=== PATIENT | female | born 1995 | race Caucasian/White ===

== ENCOUNTER 2016-11-16 16:54 | Observation (INO) | payer SELFPAY ==
[2016-11-16 16:55] VITALS: BMI 28.0
[2016-11-16] MEDS ORDERED: Sodium Chloride 0.9% 1,000 ML IV ONE (18:06)
[2016-11-16 18:14] LABS: BASO # 0.1 K/uL (0.0-0.2); BASO % 0.6 % (0.0-2.0); EOS # 0.1 K/uL (0.0-0.7); EOS % 1.2 % (0.0-4.0); HEMATOCRIT 37.4 % (34.0-47.0); LYMPH % 27.6 % (20.0-40.0); MEAN CELL VOLUME 83.8 fL (81.0-99.0); MEAN CORPUSCULAR HEMOGLOBIN 27.9 pg (27.0-31.0); MEAN CORPUSCULAR HGB CONC 33.3 g/dL (33.0-37.0); MEAN PLATELET VOLUME 8.5 fL (7.2-11.7); MONO # 0.7 K/uL (0.0-0.8); MONO % 6.5 % (0.0-10.0); NRBC % 0.1 % (0.0-2.0); RED CELL DISTRIBUTION WIDTH 13.3 % (11.5-14.5); WHITE BLOOD COUNT 10.8 K/uL (4.8-10.8)
[2016-11-16] MEDS ORDERED: Sodium Chloride 0.9% 1,000 ML ONE (18:16)
[2016-11-16 18:26] LABS: CHLORIDE 104 mmol/L (98-107); POTASSIUM 3.7 mmol/L (3.6-5.2); SODIUM 140 mmol/L (132-148)
[2016-11-16 18:28] LABS: ALB/GLOB RATIO 1.4 (1.0-2.1); ALKALINE PHOSPHATASE 64 U/L (38-126); AST/SGOT 30 U/L (14-36); BILIRUBIN,TOTAL 0.6 mg/dL (0.2-1.3); CARBON DIOXIDE 23 mmol/L (22-30); GFR AFRICAN-AMERICAN > 60; TOTAL PROTEIN 8.1 g/dL (6.3-8.3)
[2016-11-16 18:29] LABS: ALT/SGPT 34 U/L (9-52); BLOOD UREA NITROGEN 11 mg/dL (7-17); CALCIUM 9.2 mg/dl (8.6-10.4); GLUCOSE,RANDOM 77 mg/dL (65-105)
[2016-11-16 19:50] LABS: RBC URINE 470 /hpf (0-3); URINE BACTERIA OCC (<OCC); URINE BILIRUBIN NEGATIVE (NEGATIVE); URINE BLOOD 3+ (NEGATIVE); URINE COLOR Yellow (YELLOW); URINE GLUCOSE (UA) NORMAL (Normal); URINE KETONE 1+ mg/dL (NEGATIVE); URINE LEUKOCYTE ESTERASE 1+ Leu/uL (Negative); URINE PROTEIN 2+ mg/dL (NEGATIVE); URINE UROBILINOGEN NORMAL mg/dL (0.2-1.0); WBC URINE 9 /hpf (0-5)
[2016-11-16] MEDS ORDERED: Morphine 4 MG/ML VIAL ONE (20:03)
[2016-11-16] MEDS ORDERED: Iohexol 240 (50 ml) PO STA (23:04)
[2016-11-16] MEDS ORDERED: Iohexol 240 (50 ml) ONE (23:27)
[2016-11-17] MEDS ORDERED: Iodixanol 320 MG/ML 100 ML BOTTLE IV ONE (00:33)
--- NOTE | 2016-11-17 00:47 | C.PDOC ---
Time Seen by Provider: 11/16/16 17:56 Chief Complaint (Nursing): Abdominal Pain History Per: Patient, Family Onset/Duration Of Symptoms: Days (5) Current Symptoms Are (Timing): Still Present Severity: Moderate Location Of Pain/Discomfort: RLQ Quality Of Discomfort: "Pain" Associated Symptoms: Nausea, Vomiting Alleviating Factors: None Last Bowel Movement: Today Additional History Per: Prior Records Last Menstral Period: Now Past Medical History Reviewed: Historical Data, Nursing Documentation, Vital Signs Vital Signs: Last Vital Signs Temp 97.7 F 11/17/16 00:27 Pulse 59 L 11/17/16 00:27 Resp 16 11/17/16 00:27 BP 117/70 11/17/16 00:27 Pulse Ox 98 11/17/16 00:49 - Medical History PMH: Hyperthyroidism, Migraine Surgical History: Tonsillectomy Family History: States: Unknown Family Hx - Social History Hx Tobacco Use: No Hx Alcohol Use: No Hx Substance Use: No - Immunization History Hx Tetanus Toxoid Vaccination: No Hx Influenza Vaccination: Yes (10/2016) Hx Pneumococcal Vaccination: No Review Of Systems Except As Marked, All Systems Reviewed And Found Negative. Constitutional: Negative for: Fever, Weakness Cardiovascular: Negative for: Chest Pain Respiratory: Negative for: Shortness of Breath Gastrointestinal: Positive for: Nausea, Vomiting, Abdominal Pain Genitourinary: Positive for: Vaginal Bleeding (Pt states she is on her menstrua period now). Negative for: Dysuria Musculoskeletal: Negative for: Neck Pain Skin: Negative for: Rash Neurological: Negative for: Weakness, Numbness Physical Exam - Physical Exam Appears: Non-toxic, No Acute Distress Skin: Normal Color, Warm, Dry, No Rash Head: Atraumatic, Normacephalic Eye(s): bilateral: Normal Inspection, PERRL, EOMI Neck: Normal ROM, Supple Cardiovascular: Rhythm Regular Respiratory: Normal Breath Sounds, No Accessory Muscle Use Gastrointestinal/Abdominal: Soft, Tenderness (RLQ) Back: No CVA Tenderness Extremity: Normal ROM Neurological/Psych: Oriented x3, Normal Motor, Normal Sensation ED Course And Treatment - Laboratory Results Result Diagrams: 11/16/16 18:11 11/16/16 18:11 Lab Interpretation: No Acute Changes Urine POC: Negative O2 Sat by Pulse Oximetry: 98 Pulse Ox Interpretation: Normal - CT Scan/US Pelvic US Other Rad Studies (CT/US): Read By Radiologist, Radiology Report Reviewed CT/US Interpretation: No significant abnormalities of the pelvis. - Physician Consult Information Physician Contacted: Eddy Lowry (Surgery) Outcome Of Conversation: He requested CT abdomen/pelvis with IV & PO contrast if the pelvic US is negative. Progress - Interventions Interventions:: Observation, Intravenous fluid - Medications Administered Oral: Acetaminophen Intravenous: Antiemetic, H-2 nela, NSAID - Data Reviewed Data Reviewed: Lab, Diagnostic imaging, Old records Disposition - Disposition Disposition Time: 01:00 Condition: FAIR - Clinical Impression Clinical Impression: Abdominal pain Physician Patient Turnover Patient Signed Over To: Jarred Hernandez Handoff Comments: to f/up CT scan.
--- NOTE | 2016-11-17 01:56 | CT ---
EXAM: CT Abdomen and Pelvis With Intravenous Contrast EXAM DATE/TIME: 11/16/2016 11:05 PM CLINICAL HISTORY: 21 years old, female; Pain; Abdominal pain; Patient HX: 9; Additional info: Rlq pain TECHNIQUE: Axial computed tomography images of the abdomen and pelvis with intravenous contrast. All CT scans at this facility use one or more dose reduction techniques, viz.: automated exposure control; ma/kV adjustment per patient size (including targeted exams where dose is matched to indication; i.e. head); or iterative reconstruction technique. Coronal and sagittal reformatted images were created and reviewed. CONTRAST: 100 mL of [id number] administered intravenously. COMPARISON: US - PELVIS ULTRASOUND 11/16/2016 8:05:23 PM FINDINGS: Lower thorax: Heart size is normal. There is a small hiatal hernia. There is atelectasis and scarring at the lung bases ABDOMEN: Liver: There is fatty infiltration of the liver. Gallbladder and bile ducts: unremarkable Pancreas: unremarkable Spleen: unremarkable Adrenals: unremarkable Kidneys and ureters: unremarkable Stomach and bowel: unremarkable Appendix: Stomach is almost empty. Rotation is normal. There is no obstruction. There is mild terminal ileal wall thickening.Appendix is unremarkable.Colon is incompletely distended which limits evaluation. PELVIS: Bladder: unremarkable Reproductive: Uterus and left adnexa are unremarkable. There is prominence of the right adnexa. ABDOMEN and PELVIS: Intraperitoneal space: There is no free air or free fluid. Bones/joints: There are no acute osseous abnormalities Soft tissues: unremarkable Vasculature: Vascular structures are unremarkable. Lymph nodes: There is shotty adenopathy. IMPRESSION: No acute solid visceral abnormality; no CT findings of appendicitis; mild terminal ileal wall thickening underdistention versus inflammation; prominence of the right adnexa
[2016-11-17] MEDS ORDERED: Piperacillin/Tazobact 3.375 gm 100 ML IVPB STA (02:43)
[2016-11-17] MEDS ORDERED: Piperacillin/Tazobact 3.375 gm 100 ML IVPB ONE (02:52)
[2016-11-17] MEDS ORDERED: Sodium Chloride 0.9% 1,000 ML IV SCH (04:30)
--- NOTE | 2016-11-17 04:43 | CP.PCM.HP ---
<Rita Burton - Last Filed: 11/17/16 04:40> History of Present Illness - History of Present Illness History of Present Illness: General Surgery Dr. Lowry 21F presents to the ED c/o abd pain x6 days. Pt states pain has not and does not migrate around abd. Pain localized to RLQ w/ radiation into pt's back and R groin. Pt denies having had this pain previously. Pt admits to 1 episode NBNB vomiting yesterday w/ continued nausea, made worse by PO intake. Pt admits to chronic constipation with the most recent episode starting ~20days ago per pt mother @bedside. Pt denies F/C, SOB, CP, reflux, distension, numbness, tingling , weakness. Pt given dose of morphine just prior to evaluation. PMHx: hyperthyroidism meds: reviewed in chart Allergies: ibuprofen PSHx: tonsillectomy SHx: denies tobacco, EtOH, drug use. virgin FHx: noncontributory Present on Admission - Present on Admission Any Indicators Present on Admission: No Review of Systems - Review of Systems All systems: reviewed and no additional remarkable complaints except (see HPI) Past Patient History - Infectious Disease Hx of Infectious Diseases: None - Past Social History Smoking Status: Never Smoked - NEUROLOGICAL Hx Migraine: Yes - ENDOCRINE/METABOLIC Hx Hyperthyroidism: Yes - PSYCHIATRIC Hx Substance Use: No - SURGICAL HISTORY Hx Tonsillectomy: Yes - ANESTHESIA Hx Anesthesia: Yes Hx Anesthesia Reactions: No Hx Malignant Hyperthermia: No Meds Allergies/Adverse Reactions: Allergies Allergy/AdvReac Type Severity Reaction Status Date / Time ibuprofen [From Advil] AdvReac SWELLING Verified 11/16/16 17:17 Physical Exam - Constitutional Appears: Non-toxic, No Acute Distress - Head Exam Head Exam: NORMAL INSPECTION - Eye Exam Eye Exam: Normal appearance - ENT Exam ENT Exam: Mucous Membranes Moist - Respiratory Exam Respiratory Exam: NORMAL BREATHING PATTERN. absent: Accessory Muscle Use, Respiratory Distress - Cardiovascular Exam Cardiovascular Exam: absent: Bradycardia, Tachycardia - GI/Abdominal Exam GI & Abdominal Exam: Soft, Tenderness (TTP RLQ). absent: Distended, Guarding, Rebound Additional comments: negative McBurney's point, Rosving, Psoas, Obturator sign - Extremities Exam Extremities exam: Positive for: normal inspection - Neurological Exam Neurological exam: Alert, Oriented x3 - Psychiatric Exam Psychiatric exam: Normal Affect, Normal Mood - Skin Skin Exam: Dry, Intact, Normal Color, Warm Results - Vital Signs Recent Vital Signs: Last Vital Signs Temp 97.7 F 11/17/16 00:27 Pulse 59 L 11/17/16 00:27 Resp 16 11/17/16 00:27 BP 117/70 11/17/16 00:27 Pulse Ox 98 11/17/16 01:03 - Labs Result Diagrams: 11/16/16 18:11 11/16/16 18:11 Labs: Laboratory Results - last 24 hr 11/16/16 11/16/16 11/16/16 18:11 18:11 19:31 WBC 10.8 RBC 4.47 Hgb 12.5 Hct 37.4 MCV 83.8 MCH 27.9 MCHC 33.3 RDW 13.3 Plt Count 333 MPV 8.5 Neut % (Auto) 64.1 Lymph % (Auto) 27.6 [place] % (Auto) 6.5 Eos % (Auto) 1.2 Baso % (Auto) 0.6 Neut # 6.9 Lymph # 3.0 [place] # 0.7 Eos # 0.1 Baso # 0.1 Sodium 140 Potassium 3.7 Chloride 104 Carbon Dioxide 23 Anion Gap 17 BUN 11 Creatinine 0.6 L Est GFR ( Amer) > 60 Est GFR (Non-Af Amer) > 60 Random Glucose 77 Calcium 9.2 Total Bilirubin 0.6 AST 30 ALT 34 Alkaline Phosphatase 64 Total Protein 8.1 Albumin 4.7 Globulin 3.3 Albumin/Globulin Ratio 1.4 Lipase 118 Urine Color Yellow Urine Clarity Hazy Urine pH 6.0 Ur Specific [place] 1.017 Urine Protein 2+ H Urine Glucose (UA) Normal Urine Ketones 1+ H Urine Blood 3+ H Urine Nitrate Negative Urine Bilirubin Negative Urine Urobilinogen Normal Ur Leukocyte Esterase 1+ H Urine WBC (Auto) 9 H Urine RBC (Auto) 470 H Ur Squamous Epith Cells 10 H Urine Bacteria Occ H Urine HCG, Qual Negative - Imaging and Cardiology US - abdomen Status: Image reviewed by me, Report reviewed by me CT scan - abdomen Status: Image reviewed by me, Report reviewed by me Assessment & Plan - Assessment and Plan (Free Text) Assessment: 21 y/o F w/ abd pain - abd ultrasound WNL - CT A/P w/ PO & IV contrast: R adnexal swelling - NPO, IVF - pain management - anti-emetics - stool softeners - serial abd exams Further recs per Dr. Essence Courtneyanda Flick DO PGY2 <Eddy Lowry - Last Filed: 11/17/16 12:41> Results - Vital Signs Recent Vital Signs: Last Vital Signs Temp 98.0 F 11/17/16 10:00 Pulse 77 11/17/16 10:00 Resp 18 11/17/16 10:00 BP 120/79 11/17/16 10:00 Pulse Ox 98 11/17/16 10:00 - Labs Result Diagrams: 11/17/16 06:26 11/17/16 06:26 Labs: Laboratory Results - last 24 hr 11/16/16 11/16/16 11/16/16 18:11 18:11 19:31 WBC 10.8 RBC 4.47 Hgb 12.5 Hct 37.4 MCV 83.8 MCH 27.9 MCHC 33.3 RDW 13.3 Plt Count 333 MPV 8.5 Neut % (Auto) 64.1 Lymph % (Auto) 27.6 [place] % (Auto) 6.5 Eos % (Auto) 1.2 Baso % (Auto) 0.6 Neut # 6.9 Lymph # 3.0 [place] # 0.7 Eos # 0.1 Baso # 0.1 Sodium 140 Potassium 3.7 Chloride 104 Carbon Dioxide 23 Anion Gap 17 BUN 11 Creatinine 0.6 L Est GFR ( Amer) > 60 Est GFR (Non-Af Amer) > 60 Random Glucose 77 Calcium 9.2 Total Bilirubin 0.6 AST 30 ALT 34 Alkaline Phosphatase 64 Total Protein 8.1 Albumin 4.7 Globulin 3.3 Albumin/Globulin Ratio 1.4 Lipase 118 Urine Color Yellow Urine Clarity Hazy Urine pH 6.0 Ur Specific [place] 1.017 Urine Protein 2+ H Urine Glucose (UA) Normal Urine Ketones 1+ H Urine Blood 3+ H Urine Nitrate Negative Urine Bilirubin Negative Urine Urobilinogen Normal Ur Leukocyte Esterase 1+ H Urine WBC (Auto) 9 H Urine RBC (Auto) 470 H Ur Squamous Epith Cells 10 H Urine Bacteria Occ H Urine HCG, Qual Negative 11/17/16 11/17/16 06:26 06:26 WBC 7.1 RBC 3.74 L Hgb 10.5 L D Hct 31.4 L MCV 84.1 MCH 28.2 MCHC 33.5 RDW 13.3 Plt Count 258 MPV 8.0 Neut % (Auto) 57.3 Lymph % (Auto) 31.7 [place] % (Auto) 7.8 Eos % (Auto) 2.5 Baso % (Auto) 0.7 Neut # 4.1 Lymph # 2.3 [place] # 0.6 Eos # 0.2 Baso # 0.0 Sodium 136 Potassium 3.7 Chloride 104 Carbon Dioxide 22 Anion Gap 13 BUN 7 Creatinine 0.6 L Est GFR ( Amer) > 60 Est GFR (Non-Af Amer) > 60 Random Glucose 81 Calcium 8.2 L Total Bilirubin 0.7 AST 18 ALT 30 Alkaline Phosphatase 46 Total Protein 5.9 L Albumin 3.3 L D Globulin 2.6 Albumin/Globulin Ratio 1.3 Lipase Urine Color Urine Clarity Urine pH Ur Specific [place] Urine Protein Urine Glucose (UA) Urine Ketones Urine Blood Urine Nitrate Urine Bilirubin Urine Urobilinogen Ur Leukocyte Esterase Urine WBC (Auto) Urine RBC (Auto) Ur Squamous Epith Cells Urine Bacteria Urine HCG, Qual Attending/Attestation - Attestation I have personally seen and examined this patient.: Yes I have fully participated in the care of the patient.: Yes I have reviewed all pertinent clinical information: Yes Notes (Text): 11/17/16 12:39 Pt was seen and examined at bedside Pt with RLQ pain for last 6 days. No RLQ tenderness Abdomen is soft, Nontender. Labs and radiology reviewed CT scan reviewed with Radiologist Pt might have early terminal ileitis, No evidence of appendicitis Pt has UTI on UA Pt also has severe constipation Pt can be DC home on Levaquine and flagyl and lactulose f.u as out pt in office after 1 week. Plan d.w pt in detail Risk and benefit explained in detail.
[2016-11-17] MEDS ORDERED: metroNIDAZOLE IV 500 mg/100 ml 500 MG/100 ML BAG IVPB SCH (06:00)
[2016-11-17 06:29] LABS: BASO % 0.7 % (0.0-2.0); EOS # 0.2 K/uL (0.0-0.7); EOS % 2.5 % (0.0-4.0); HEMATOCRIT 31.4 % (34.0-47.0); LYMPH # 2.3 K/uL (1.0-4.3); LYMPH % 31.7 % (20.0-40.0); MEAN CELL VOLUME 84.1 fL (81.0-99.0); MEAN CORPUSCULAR HEMOGLOBIN 28.2 pg (27.0-31.0); MEAN CORPUSCULAR HGB CONC 33.5 g/dL (33.0-37.0); MONO # 0.6 K/uL (0.0-0.8); MONO % 7.8 % (0.0-10.0); RED CELL DISTRIBUTION WIDTH 13.3 % (11.5-14.5); WHITE BLOOD COUNT 7.1 K/uL (4.8-10.8)
[2016-11-17 06:43] LABS: ALB/GLOB RATIO 1.3 (1.0-2.1); ALKALINE PHOSPHATASE 46 U/L (38-126); ALT/SGPT 30 U/L (9-52); AST/SGOT 18 U/L (14-36); BILIRUBIN,TOTAL 0.7 mg/dL (0.2-1.3); BLOOD UREA NITROGEN 7 mg/dL (7-17); CALCIUM 8.2 mg/dl (8.6-10.4); CARBON DIOXIDE 22 mmol/L (22-30); CHLORIDE 104 mmol/L (98-107); GFR AFRICAN-AMERICAN > 60; GLUCOSE,RANDOM 81 mg/dL (65-105); POTASSIUM 3.7 mmol/L (3.6-5.2); SODIUM 136 mmol/L (132-148); TOTAL PROTEIN 5.9 g/dL (6.3-8.3)
[2016-11-17] MEDS ORDERED: metroNIDAZOLE IV 500 mg/100 ml 500 MG/100 ML BAG ONE (07:11)
[2016-11-17] MEDS ORDERED: Magnesium Hydroxide Susp 30 ml UD PO ONE (08:30)
--- NOTE | 2016-11-17 09:01 | US ---
HISTORY: Pelvic Pain COMPARISON: None available. TECHNIQUE: Transabdominal ultrasound examination of the pelvis was performed. FINDINGS: UTERUS: Measures 8.1 x 4.2 x 4.8 cm. Normal in size and appearance. No fibroid or other mass lesion seen. ENDOMETRIUM: Measures 14 mm in diameter. Unremarkable. CERVIX: No cervical abnormality identified. RIGHT OVARY: Measures 3.1 x 2.5 x 2.6 cm. No solid mass. Normal flow. LEFT OVARY: Measures 3.2 x 2.9 x 2.2 cm. No solid mass. Normal flow. FREE FLUID: No significant free fluid noted. OTHER FINDINGS: None. IMPRESSION: No evidence of acute pathology in the pelvis. Preliminary report was submitted by virtual Radiology.
[2016-11-17] MEDS ORDERED: methIMAzole 2.5 MG TAB PO SCH (12:00)
--- NOTE | 2016-11-17 12:51 | CP.PCM.DIS ---
Provider - Provider Date of Admission: 11/17/16 02:41 Attending physician: Eddy Lowry MD Time Spent in preparation of Discharge (in minutes): 45 Hospital Course - Lab Results Lab Results: Most Recent Lab Values WBC 7.1 K/uL (4.8-10.8) 11/17/16 06:26 RBC 3.74 Mil/uL (3.80-5.20) L 11/17/16 06:26 Hgb 10.5 g/dL (11.0-16.0) L D 11/17/16 06:26 Hct 31.4 % (34.0-47.0) L 11/17/16 06:26 MCV 84.1 fL (81.0-99.0) 11/17/16 06:26 MCH 28.2 pg (27.0-31.0) 11/17/16 06:26 MCHC 33.5 g/dL (33.0-37.0) 11/17/16 06:26 RDW 13.3 % (11.5-14.5) 11/17/16 06:26 Plt Count 258 K/uL (130-400) 11/17/16 06:26 MPV 8.0 fL (7.2-11.7) 11/17/16 06:26 Neut % (Auto) 57.3 % (50.0-75.0) 11/17/16 06:26 Lymph % (Auto) 31.7 % (20.0-40.0) 11/17/16 06:26 [place] % (Auto) 7.8 % (0.0-10.0) 11/17/16 06:26 Eos % (Auto) 2.5 % (0.0-4.0) 11/17/16 06:26 Baso % (Auto) 0.7 % (0.0-2.0) 11/17/16 06:26 Neut # 4.1 K/uL (1.8-7.0) 11/17/16 06:26 Lymph # 2.3 K/uL (1.0-4.3) 11/17/16 06:26 [place] # 0.6 K/uL (0.0-0.8) 11/17/16 06:26 Eos # 0.2 K/uL (0.0-0.7) 11/17/16 06:26 Baso # 0.0 K/uL (0.0-0.2) 11/17/16 06:26 Sodium 136 mmol/L (132-148) 11/17/16 06:26 Potassium 3.7 mmol/L (3.6-5.2) 11/17/16 06:26 Chloride 104 mmol/L (98-107) 11/17/16 06:26 Carbon Dioxide 22 mmol/L (22-30) 11/17/16 06:26 Anion Gap 13 (10-20) 11/17/16 06:26 BUN 7 mg/dL (7-17) 11/17/16 06:26 Creatinine 0.6 MG/DL (0.7-1.2) L 11/17/16 06:26 Est GFR ( Amer) > 60 11/17/16 06:26 Est GFR (Non-Af Amer) > 60 11/17/16 06:26 Random Glucose 81 mg/dL (65-105) 11/17/16 06:26 Calcium 8.2 mg/dl (8.6-10.4) L 11/17/16 06:26 Total Bilirubin 0.7 mg/dL (0.2-1.3) 11/17/16 06:26 AST 18 U/L (14-36) 11/17/16 06:26 ALT 30 U/L (9-52) 11/17/16 06:26 Alkaline Phosphatase 46 U/L (38-126) 11/17/16 06:26 Total Protein 5.9 g/dL (6.3-8.3) L 11/17/16 06:26 Albumin 3.3 g/dL (3.5-5.0) L D 11/17/16 06:26 Globulin 2.6 gm/dL (2.2-3.9) 11/17/16 06:26 Albumin/Globulin Ratio 1.3 (1.0-2.1) 11/17/16 06:26 Lipase 118 U/L (23-300) 11/16/16 18:11 Urine Color Yellow (YELLOW) 11/16/16 19:31 Urine Clarity Hazy (Clear) 11/16/16 19:31 Urine pH 6.0 (5.0-8.0) 11/16/16 19:31 Ur Specific [place] 1.017 (1.003-1.030) 11/16/16 19:31 Urine Protein 2+ mg/dL (NEGATIVE) H 11/16/16 19:31 Urine Glucose (UA) Normal mg/dL (Normal) 11/16/16 19:31 Urine Ketones 1+ mg/dL (NEGATIVE) H 11/16/16 19:31 Urine Blood 3+ (NEGATIVE) H 11/16/16 19:31 Urine Nitrate Negative (NEGATIVE) 11/16/16 19:31 Urine Bilirubin Negative (NEGATIVE) 11/16/16 19:31 Urine Urobilinogen Normal mg/dL (0.2-1.0) 11/16/16 19:31 Ur Leukocyte Esterase 1+ Nupur/uL (Negative) H 11/16/16 19:31 Urine WBC (Auto) 9 /hpf (0-5) H 11/16/16 19:31 Urine RBC (Auto) 470 /hpf (0-3) H 11/16/16 19:31 Ur Squamous Epith Cells 10 /hpf (0-5) H 11/16/16 19:31 Urine Bacteria Occ (<OCC) H 11/16/16 19:31 Urine HCG, Qual Negative (NEGATIVE) 11/16/16 19:31 - Hospital Course Hospital Course: 21F with PMH of hyperthyroidism on Methimazole came to ED with 1 week of R side abd pain, N/V. Pt also reports constipation. Pt had recent travel to [place] and had similar symptoms. Denies F/D/CP/SOB/sick contact. US and Ct was taken: shows no appendicitis. Mild terminal ileum inflammation and enlarged R ednexa. Labs were wnl and VSS. UA shows Leuk esterase, WBC, RBC, and bacteria. Pt is treated with ABX. Pt tolerated diet and was cleared to go home with PO ABX. Discharge Exam - Head Exam Head Exam: NORMAL INSPECTION - Eye Exam Eye Exam: EOMI, Normal appearance, PERRL Pupil Exam: NORMAL ACCOMODATION, PERRL - ENT Exam ENT Exam: Mucous Membranes Moist - Neck Exam Neck exam: Full Rom - Respiratory Exam Respiratory Exam: Clear to PA & Lateral, NORMAL BREATHING PATTERN, UNREMARKABLE - Cardiovascular Exam Cardiovascular Exam: REGULAR RHYTHM - GI/Abdominal Exam GI & Abdominal Exam: Normal Bowel Sounds, Soft, Tenderness, Unremarkable. absent: Distended, Firm - Extremities Exam Extremities exam: full ROM - Neurological Exam Neurological exam: Alert, CN II-XII Intact, Normal Gait, Oriented x3, Reflexes Normal - Psychiatric Exam Psychiatric exam: Normal Affect, Normal Mood - Skin Skin Exam: Dry, Intact, Normal Color, Warm Discharge Plan - Discharge Medications Prescriptions: Docusate Sodium [Colace] 100 mg PO DAILY #5 capsule Levofloxacin [Levaquin] 250 mg PO DAILY #5 tablet - Follow Up Plan Condition: FAIR Disposition: HOME/ ROUTINE Instructions: Acute Abdominal Pain (DC), Acute Abdominal Pain (GEN), Urinary Tract Infection in Women (DC) Additional Instructions: *Give Discharge instructions upon discharge Follow up with Dr. Lowry in 1-2 weeks. Follow up with Dr. Pappas for pelvic pain/ enlarged R adnexa Take Antibiotic for UTI Take colace for constipation. Referrals: Elizabeth Pappas MD [Staff Provider] -
[2016-11-17 13:18] VITALS: BP 116/82; PULSE 78; RESP 20; TEMP 97.9; O2SAT 100
== END 2016-11-17 13:17 | disposition home or self-care (01) ==
LOC: C.ER 16:54 → C.9E 11-17 02:41
PROVIDERS: ADMIT Surgery Surgical Critical Care; ATTEND Surgery Surgical Critical Care
DX: R10.9 Unspecified abdominal pain (principal); N39.0 Urinary tract infection, site not specified; E03.9 Hypothyroidism, unspecified
CPT/HCPCS: 74177; 76856; 80053; 81001; 83690; 84703; 85025; 96361; 96365; 96367; 96375; 99285; G0378; J2270; J2405; J2543; J2765; J7040; Q9966; Q9967